=== PATIENT | female | born 2000 | race Two or more races ===

== ENCOUNTER → 2021-02-06 | Outpatient (CLI) | payer OTHER ==
--- NOTE | 2021-02-06 10:16 | KCIC ---
EXAM: Right fifth finger 3 views. HISTORY: Fifth digit pain after injury. COMPARISON: None. FINDINGS: There are tiny avulsion fragments along the volar, radial aspect of the middle phalangeal b ase. Soft tissue swelling is noted about the proximal interphalangeal joint. Alignment and joint spac es are maintained. IMPRESSION: 1. Small avulsion fractures about the fifth proximal interphalangeal joint. Correlate to ensure stabi lity. Electronically signed by: Brianna Quiñonez MD (02/06/2021 10:13 AM) [id number]
== END ==
LOC: KCIC 09:33
PROVIDERS: ATTEND Family Medicine
DX: S63.256A Unspecified dislocation of right little finger, initial encounter (principal); S62.616A Displaced fracture of proximal phalanx of right little finger, initial encounter for closed fracture; M25.441 Effusion, right hand; M79.89 Other specified soft tissue disorders; X58.XXXA Exposure to other specified factors, initial encounter; Y93.89 Activity, other specified; Y92.89 Other specified places as the place of occurrence of the external cause; Y99.8 Other external cause status
CPT/HCPCS: 73140

== ENCOUNTER → 2021-05-02 | Outpatient (CLI) | payer OTHER ==
--- NOTE | 2021-05-03 04:17 | KCIC ---
XR FINGER(S)_LEFT 2+VIEWS_RT 05/02/2021 2:45 PM INDICATION: Pain and swelling to the left third digit COMPARISON: None available. TECHNIQUE: 2 views of the third digit of the left hand are provided. FINDINGS/ IMPRESSION: There is no acute fracture or dislocation. Joint spaces are maintained. Bone mineralization is within normal limits. Regional soft tissues are within normal limits. There is no soft tissue gas or osseou s erosion. No radiopaque foreign body. Electronically signed by: Leia Hodgson MD (05/03/2021 4:15 AM) NAYELY
== END ==
LOC: KCIC 14:42
PROVIDERS: ATTEND Family Medicine
DX: M79.645 Pain in left finger(s) (principal); M25.442 Effusion, left hand
CPT/HCPCS: 73140

== ENCOUNTER → 2021-10-23 | Outpatient (CLI) | payer OTHER ==
--- NOTE | 2021-10-23 12:41 | KCIC ---
XR EXAM OF ANKLE_LEFT 3V DATE: 10/23/2021 9:31 AM INDICATION: Left lateral ankle pain, edema, decreased ROM. Hurts to bear weight. Injured playing [employer] a few wks. ago. / History: COMPARISON: None. FINDINGS: Bones: There is no evidence of acute fracture or dislocation. Joints: The ankle mortise is congruent. No widening of the distal tibiofibular syndesmosis. Miscellaneous: None. IMPRESSION: No evidence of acute fracture. Electronically signed by: Stu Jang MD (10/23/2021 12:39 PM) [id number]
== END ==
LOC: KCIC 09:25
PROVIDERS: ATTEND Family Medicine
DX: M25.572 Pain in left ankle and joints of left foot (principal); R60.9 Edema, unspecified; M25.672 Stiffness of left ankle, not elsewhere classified
CPT/HCPCS: 73610